=== PATIENT | female | born 1945 | race Caucasian/White ===

== ENCOUNTER 2019-03-02 09:35 | Outpatient (CLI) | payer MEDICARE, MEDICAID ==
[~2019-03-02 09:35] MED LIST: ASPI-1169 PO; BENA40TA67 PO; CARV12.5 PO; FURO20TA4 PO; LEVO50TA PO; SIMV40TA2 PO
== END 2019-03-02 23:59 | disposition home or self-care (01) ==
LOC: CARD 09:35
PROVIDERS: ATTEND Internal Medicine Interventional Cardiology
DX: I65.23 Occlusion and stenosis of bilateral carotid arteries (principal); I70.293 Other atherosclerosis of native arteries of extremities, bilateral legs; I10 Essential (primary) hypertension; J44.9 Chronic obstructive pulmonary disease, unspecified; E03.9 Hypothyroidism, unspecified; F17.200 Nicotine dependence, unspecified, uncomplicated
CPT/HCPCS: 93880-TC

== ENCOUNTER 2021-05-30 17:02 | Inpatient (IN) | payer MEDICARE, OTHER ==
[~2021-05-30] VITALS: Ht 162.6 cm; Wt 63.3 kg
--- NOTE | 2021-05-30 17:20 | NUR ---
PT BIB [facility] FROM HOME,WORSENING SOB X 3 WEEKS & BODY ACHES. PT S/P SURGERY; SURGERY SITE ON ABD. PT DOES NOT RECALL WHAT THE PROCEDURE IS CALLED. PT A/OX3. TOLERATING R/A AT 95%. GISSELLE HEARD ON BILATERAL LUNGS. CONNECTED PT TO POX AND MONITOR.
--- NOTE | 2021-05-30 17:58 | NUR ---
RFA #20G S/L; PATENT AND INTACT. URINE, COVID ANTIGEN, AND COVID PCR SWAB COLLECTED AND GIVEN TO LAB.
[2021-05-30 18:18] LABS: BASOPHILS % (AUTO) 0.5 % (0.0-2.0); EOSINOPHILS % (AUTO) 0.8 % (0.0-6.0); HEMATOCRIT 37 % (33-45); LYMPHOCYTES # (AUTO) 1.3 K/uL (0.8-4.8); LYMPHOCYTES % (AUTO) 32.2 % (20.0-44.0); MEAN CORPUSCULAR HGB CONC 33 g/dl (31.0-36.0); MEAN CORPUSCULAR VOLUME 91 fL (82-100); MONOCYTES # (AUTO) 0.3 K/uL (0.1-1.30); MONOCYTES % (AUTO) 8.4 % (2.0-12.0); NEUTROPHILS # (AUTO) 2.3 K/uL (1.8-8.9); NEUTROPHILS % (AUTO) 58.1 % (43.0-81.0); PLATELET COUNT (AUTO) 328 K/uL (150-450); RED BLOOD CELL COUNT(AUTO) 4.03 MIL/uL (4.0-5.2)
--- NOTE | 2021-05-30 18:22 | NUR ---
SUPERVISOR MECHANIC BOILERMAKING AT PT'S BEDSIDE
[2021-05-30 18:36] LABS: CARBON DIOXIDE 23 mmol/L (21-32); CHLORIDE 100 mmol/L (98-107); CREATININE 1.7 mg/dL (0.6-1.3); GLUCOSE 107 mg/dL (74-106); POTASSIUM 3.9 mmol/L (3.5-5.1); SODIUM SERUM 134 mmol/L (136-145); UREA NITROGEN, BLOOD 30 mg/dL (7-18)
[2021-05-30] MEDS ORDERED: SIMV-49 PO (18:37)
[2021-05-30] MEDS ORDERED: DONE5TAB34 PO (18:37)
[2021-05-30] MEDS ORDERED: ATOR40TA PO (18:37)
[2021-05-30] MEDS ORDERED: AMLO-213 PO (18:37)
[2021-05-30] MEDS ORDERED: DEXL60CA3 PO (18:37)
[2021-05-30] MEDS ORDERED: LEVO88TA71 PO (18:37)
[2021-05-30] MEDS ORDERED: SITA50TA PO (18:37)
[2021-05-30] MEDS ORDERED: APIX5TAB PO (18:37)
[2021-05-30 18:40] LABS: COLOR,URINE BROWN (YELLOW)
[2021-05-30 18:50] LABS: ALANINE AMINOTRANSFERASE 16 U/L (12-78); ALBUMIN 3.4 g/dL (3.4-5.0); ALKALINE PHOSPHATASE 86 U/L (46-116); ASPARTATE AMINOTRANSFERASE 20 U/L (15-37); BILIRUBIN,TOTAL 0.6 mg/dL (0.2-1.0); TOTAL PROTEIN, SERUM 8.1 g/dL (6.4-8.2)
[2021-05-30] MEDS ORDERED: IOHEXOL-350 100 ML VIAL IV ONE (18:55)
[2021-05-30 18:57] LABS: RBC,URINE TOO NUMEROUS TO COUN /HPF (0-2)
[2021-05-30 18:58] LABS: BACTERIA,URINE 1+ /HPF (None Seen); SQUAMOUS EPITHELIAL CELL,UR 0-2 /HPF (None Seen)
[2021-05-30 18:58] LABS: CREATINE KINASE, TOTAL 30 U/L (26-192); FERRITIN 483 ng/mL (8-388)
[2021-05-30 19:02] LABS: C-REACTIVE PROTEIN 1.3 mg/dL (0.0-0.9); D-DIMER 10.2 mg/L(FEU (0.17-0.50)
--- NOTE | 2021-05-30 19:14 | NUR ---
PT AT CT. INSERTED LAC #20G S/L PATENT AND INTACT
--- NOTE | 2021-05-30 19:23 | NUR ---
CALLED [facility], PAGED DR BRUCE
[2021-05-30] MEDS ORDERED: MAGNESIUM HYDROXIDE 30 ML UDC PO PRN (20:00)
[2021-05-30] MEDS ORDERED: Z GUARD REMEDY 4 OZ OINT TP PRN (20:00)
[2021-05-30] MEDS: CEFTRIAXONE 1 G in IV D5W 50 ML IV SCH (20:00)
[2021-05-30] MEDS ORDERED: LABETALOL HCL IV 100MG VIAL IV PRN (20:00)
[2021-05-30] MEDS ORDERED: ZOLPIDEM TARTRATE 5 MG TABLET PO PRN (20:00)
[2021-05-30] MEDS ORDERED: MAG HYDROX/AL HYDROX/SIMETH 30 ML UDC PO PRN (20:00)
[2021-05-30] MEDS ORDERED: MORPHINE SULFATE INJ 2 MG/ML DISP.SYRIN IV PRN (20:00)
[2021-05-30] MEDS ORDERED: ACETAMINOPHEN 325 MG TABLET PO PRN (20:00)
[2021-05-30] MEDS ORDERED: HEPARIN SODIUM, PORCINE 5000 UNITS/1 ML VIAL SQ SCH (21:00)
[2021-05-30] MEDS ORDERED: SIMVASTATIN 20 MG TABLET ONE (21:34)
[2021-05-30] MEDS ORDERED: CEFTRIAXONE 1GM BAG (ER ONLY) 50 ML IV ONE (21:34)
[2021-05-30] MEDS ORDERED: AZITHROMYCIN 500 MG VIAL ONE (21:34)
[2021-05-30] MEDS ORDERED: SIMVASTATIN 40 MG TABLET PO SCH (22:00)
[2021-05-30] MEDS: AZITHROMYCIN 500 MG in IV D5W 250 ML IV SCH (22:37)
[2021-05-31 05:46] LABS: BASOPHILS % (AUTO) 0.5 % (0.0-2.0); EOSINOPHILS % (AUTO) 0.4 % (0.0-6.0); HEMATOCRIT 35 % (33-45); HEMOGLOBIN 11.4 g/dL (11.5-14.8); LYMPHOCYTES # (AUTO) 1.4 K/uL (0.8-4.8); LYMPHOCYTES % (AUTO) 30.2 % (20.0-44.0); MEAN CORPUSCULAR HGB CONC 33 g/dl (31.0-36.0); MEAN CORPUSCULAR VOLUME 91 fL (82-100); MONOCYTES # (AUTO) 0.4 K/uL (0.1-1.30); MONOCYTES % (AUTO) 8.9 % (2.0-12.0); NEUTROPHILS # (AUTO) 2.9 K/uL (1.8-8.9); PLATELET COUNT (AUTO) 322 K/uL (150-450); RED BLOOD CELL COUNT(AUTO) 3.81 MIL/uL (4.0-5.2); WHITE BLOOD COUNT (AUTO) 4.8 K/uL (4.3-11.0)
[2021-05-31 06:59] LABS: CALCIUM, SERUM 8.4 mg/dL (8.5-10.1); CARBON DIOXIDE 24 mmol/L (21-32); CHLORIDE 100 mmol/L (98-107); CREATININE 1.8 mg/dL (0.6-1.3); GLUCOSE 110 mg/dL (74-106); MAGNESIUM 2.2 mg/dL (1.8-2.4); PHOSPHORUS 3.2 mg/dL (2.5-4.9); POTASSIUM 4.2 mmol/L (3.5-5.1); SODIUM SERUM 134 mmol/L (136-145); UREA NITROGEN, BLOOD 32 mg/dL (7-18)
[2021-05-31] MEDS ORDERED: PANTOPRAZOLE 40 MG TABLET.DR PO SCH (07:30)
[2021-05-31] MEDS: PANTOPRAZOLE 40 MG TABLET.DR PO SCH (07:30)
--- NOTE | 2021-05-31 07:40 | NUR ---
ASSESSED PT ON BED ASLEEP, EASILY AROUSABLE, NOT IN RESPIRATORY DISTRESS, ON O2 AT 3 LPM VIA NC, V/S STABLE, KEPT RESTED AND COMFORTABLE. WILL CONTINUE TO MONITOR.
[2021-05-31] MEDS ORDERED: PANTOPRAZOLE 40 MG TABLET.DR PO ONE (08:03)
[2021-05-31] MEDS ORDERED: ASPIRIN 81 MG TAB.CHEW ONE (08:41)
[2021-05-31] MEDS ORDERED: HEPARIN SODIUM, PORCINE 5000 UNITS/1 ML VIAL ONE (08:41)
[2021-05-31] MEDS ORDERED: ASPIRIN EC 325 MG TABLET.DR PO SCH (09:00)
[2021-05-31] MEDS: ASPIRIN EC 81 MG TABLET.DR PO SCH (09:01)
[2021-05-31] MEDS: HEPARIN SODIUM, PORCINE 5000 UNITS/1 ML VIAL SQ SCH ×2 (09:02→21:27)
[2021-05-31] MEDS ORDERED: SITAGLIPTIN PHOSPHATE 50 MG TABLET PO SCH (10:30)
[2021-05-31] MEDS ORDERED: CARVEDILOL 6.25 MG TABLET ONE (11:48)
[2021-05-31] MEDS ORDERED: APIXABAN 5 MG TABLET ONE ×2 (11:48→17:27)
[2021-05-31] MEDS ORDERED: AMLODIPINE BESYLATE 10 MG TABLET ONE (11:49)
[2021-05-31] MEDS ORDERED: DONEPEZIL 5 MG TABLET ONE (11:49)
[2021-05-31] MEDS: DONEPEZIL 5 MG TABLET PO SCH (11:52)
[2021-05-31] MEDS: APIXABAN 5 MG TABLET PO SCH ×2 (11:52→17:31)
[2021-05-31] MEDS: CARVEDILOL 12.5 MG TABLET PO SCH (12:01)
[2021-05-31] MEDS: AMLODIPINE BESYLATE 10 MG TABLET PO SCH (12:01)
[2021-05-31] MEDS: LINAGLIPTIN 5 MG TABLET PO SCH (13:24)
--- NOTE | 2021-05-31 13:46 | NUR ---
PT A/OX4. TOLERATING O2 3LPM VIA N/C. OFFERED PT LUNCH AND EATING FOOD; TOLERATING WELL. NO ACUTE STRESS NOTED AT THIS TIME. ALL NEEDS MET
--- NOTE | 2021-05-31 16:16 | NUR ---
GOT BED 203
--- NOTE | 2021-05-31 16:31 | NUR ---
CALLED [facility] X3 WILL NO ENTRY LEVEL DRAFTER. WILL TRY TO CALL AGAIN LATER
--- NOTE | 2021-05-31 17:16 | NUR ---
REPORT GIVEN TO RENY ADAMS RN FOR CHAYO
[2021-05-31] MEDS ORDERED: DEXAMETHASONE SOD PHOSPHATE 10 MG/ML VIAL ONE (17:27)
[2021-05-31] MEDS: DEXAMETHASONE SOD PHOSPHATE 4 MG/ML VIAL IV SCH (17:30)
[2021-05-31 17:50] VITALS: BP 122/67
--- NOTE | 2021-05-31 17:50 | NUR ---
EMBROIDERY ASSISTANTELECTION JUDGE NOTES RECEIVED PATIENT FROM ER ENDORSED BY ER NURSE CARLOS. PATIENT IS AWAKE AND A/O X3-4. ON O2 AT 2LPM VIA NASAL CANNULA TOLERATING WELL. WITH NO COMPLAINTS OF PAIN OR DISCOMFORT AT THIS TIME. ON TELE MONITOR CURRENTLY READING SINUS RHYTHM AT 72BPM. WITH IV ACCESS AT LEFT AC G20 AND RIGHT WRIST G20 SALINE LOCKED, PATENT AND INTACT. SAFETY MEASURES IN PLACED. CALL LIGHT WITHIN REACH. BED ON LOWEST LOCKED POSITION, SIDE RAILS UP X2. WILL CONTINUE TO MONITOR.
--- NOTE | 2021-05-31 18:07 | NUR ---
PT TRANSFERRED TO [facility] 203 VIA ACLS PROTOCOL. ALL BELONGINGS WITH PT. VSS. NOTIFIED ITALO (DAUGHTER)
[2021-05-31 18:50] VITALS: BP 122/67
[2021-05-31] MEDS: CEFTRIAXONE 1 G in IV D5W 50 ML IV SCH (19:24)
--- NOTE | 2021-05-31 19:30 | NUR ---
PHILOSOPHY INSTRUCTOR CLOSING NOTES PATIENT AWAKE ON BED AND A/O X3-4. ON O2 AT 2LPM VIA NASAL CANNULA TOLERATING WELL. WITH NO COMPLAINTS OF PAIN OR DISCOMFORT AT THIS TIME. ON TELE MONITOR CURRENTLY READING SINUS BRADYCARDIA AT 56BPMBPM. WITH IV ACCESS AT LEFT AC G20 AND RIGHT WRIST G20 SALINE LOCKED, PATENT AND INTACT. SAFETY MEASURES IN PLACED. CALL LIGHT WITHIN REACH. BED ON LOWEST LOCKED POSITION, SIDE RAILS UP X2. WILL ENDORSE TO NEXT SHIFT FOR CHAYO.
--- NOTE | 2021-05-31 19:40 | NUR ---
RN opening notes Received Pt from morning. Pt is laying in bed watching TV comfortably. Pt is alert and orientedX2-3. Pt speak Italian and able to make needs known. IV site at R wrist# 20 is clean, intact and SL. IV site at LAC# 20 is clean, intact, flushes well and SL. Tele monitor showed S.rhtym/S.claire HR at 57. Safety precautions is maintained. Bed at low position, brakes locked, side rail upX3, hob elevated and call light is within reach. Will continue to monitor. Addendum: 05/31/21 at 2038 by KARL DRUMMOND RN respiration on 2 L NC. NO SOB. No S/S of distress noted.
[2021-05-31 20:00] VITALS: BP 158/92
[2021-05-31] MEDS: AZITHROMYCIN 500 MG in IV D5W 250 ML IV SCH (20:04)
[2021-05-31] MEDS: ATORVASTATIN 40 MG TABLET PO SCH (21:25)
[2021-05-31 22:00] VITALS: BP 138/84
[2021-06-01] VITALS: BP 138/69
[2021-06-01 04:00] VITALS: BP 156/92
--- NOTE | 2021-06-01 06:40 | NUR ---
RN closing notes Pt is resting in bed comfortably. Pt is alert and orientedX2-3. Respiration on 2 L NC. No SOB. No S/s of distress noted. IV site at R wrist# 20 is clean, intact and SL. IV site at LAC# 20 is clean, intact, flushes well and SL. Tele monitor showed S.claire HR at 53. Routine meds were given as ordered. Kept Pt clean, dry and comfortable. Kept Pt clean, dry and comfortable. Safety precautions is maintained. Bed at low position, brakes locked, side rail upX3, hob elevated and call light is within reach. Will endorse to am nurse for CHAYO.
--- NOTE | 2021-06-01 07:06 | NUR ---
REVENUE ENFORCEMENT AGENT OPENING NOTES RECEIVED PATIENT IN BED, AWAKE AND A/O X3-4. ON O2 AT 2LPM VIA NASAL CANNULA TOLERATING WELL, NO S/SX OF ACUTE DISTRESS NOTED. WITH NO COMPLAINTS OF PAIN OR DISCOMFORT AT THIS TIME. ON TELE MONITOR CURRENTLY READING SINUS RHYTHM AT 70'S. WITH IV ACCESS AT LEFT AC G20 AND RIGHT WRIST G20 SALINE LOCKED, PATENT, FLUSHES WELL AND INTACT. SAFETY MEASURES IN PLACED. CALL LIGHT WITHIN REACH. BED ON LOWEST LOCKED POSITION, SIDE RAILS UP X2. WILL CONTINUE TO MONITOR ACCORDINGLY.
[2021-06-01 07:09] LABS: BASOPHILS % (AUTO) 0.2 % (0.0-2.0); HEMATOCRIT 34 % (33-45); HEMOGLOBIN 11.2 g/dL (11.5-14.8); LYMPHOCYTES # (AUTO) 0.8 K/uL (0.8-4.8); LYMPHOCYTES % (AUTO) 24.8 % (20.0-44.0); MEAN CORPUSCULAR HGB CONC 33 g/dl (31.0-36.0); MEAN CORPUSCULAR VOLUME 91 fL (82-100); MONOCYTES # (AUTO) 0.1 K/uL (0.1-1.30); MONOCYTES % (AUTO) 2.7 % (2.0-12.0); NEUTROPHILS # (AUTO) 2.3 K/uL (1.8-8.9); NEUTROPHILS % (AUTO) 72.3 % (43.0-81.0); PLATELET COUNT (AUTO) 283 K/uL (150-450); RED BLOOD CELL COUNT(AUTO) 3.76 MIL/uL (4.0-5.2); WHITE BLOOD COUNT (AUTO) 3.2 K/uL (4.3-11.0)
[2021-06-01 07:32] LABS: ALANINE AMINOTRANSFERASE 11 U/L (12-78); ALBUMIN 3.1 g/dL (3.4-5.0); ALKALINE PHOSPHATASE 71 U/L (46-116); ASPARTATE AMINOTRANSFERASE 13 U/L (15-37); BILIRUBIN,TOTAL 0.4 mg/dL (0.2-1.0); CALCIUM, SERUM 8.5 mg/dL (8.5-10.1); CARBON DIOXIDE 24 mmol/L (21-32); CHLORIDE 102 mmol/L (98-107); CREATININE 1.6 mg/dL (0.6-1.3); GLUCOSE 150 mg/dL (74-106); MAGNESIUM 2.3 mg/dL (1.8-2.4); POTASSIUM 4.6 mmol/L (3.5-5.1); SODIUM SERUM 136 mmol/L (136-145); TOTAL PROTEIN, SERUM 7.5 g/dL (6.4-8.2); UREA NITROGEN, BLOOD 26 mg/dL (7-18)
[2021-06-01] MEDS: PANTOPRAZOLE 40 MG TABLET.DR PO SCH (07:37)
[2021-06-01 08:00] VITALS: BP 157/87
[2021-06-01] MEDS: LEVOTHYROXINE SODIUM 88 MCG TABLET PO SCH (08:33)
[2021-06-01] MEDS: ASPIRIN EC 81 MG TABLET.DR PO SCH (08:33)
[2021-06-01] MEDS: LINAGLIPTIN 5 MG TABLET PO SCH (08:33)
[2021-06-01] MEDS: DONEPEZIL 5 MG TABLET PO SCH (08:33)
[2021-06-01] MEDS: DEXAMETHASONE SOD PHOSPHATE 4 MG/ML VIAL IV SCH (08:33)
[2021-06-01] MEDS: CARVEDILOL 12.5 MG TABLET PO SCH (08:34)
[2021-06-01] MEDS: AMLODIPINE BESYLATE 10 MG TABLET PO SCH (08:34)
[2021-06-01] MEDS: APIXABAN 5 MG TABLET PO SCH ×2 (08:35→16:20)
[2021-06-01] MEDS: HEPARIN SODIUM, PORCINE 5000 UNITS/1 ML VIAL SQ SCH ×2 (08:35→21:51)
--- NOTE | 2021-06-01 15:00 | NUR ---
RN NOTES URINE SPECIMEN COLLECTED. INFORMED LAB SPOKE TO ANURAG.
--- NOTE | 2021-06-01 18:23 | NUR ---
CHIEF CLINICAL OFFICER CLOSING NOTES PATIENT IN BED, AWAKE AND A/O X3-4. ON O2 AT 2LPM VIA NASAL CANNULA TOLERATING WELL, NO S/SX OF ACUTE DISTRESS NOTED. WITH NO COMPLAINTS OF PAIN OR DISCOMFORT AT THIS TIME. ON TELE MONITOR CURRENTLY READING SINUS RHYTHM AT 60'S. WITH IV ACCESS AT LEFT AC G20 AND RIGHT WRIST G20 SALINE LOCKED, PATENT, FLUSHES WELL AND INTACT. SAFETY MEASURES IN PLACED. CALL LIGHT WITHIN REACH. BED ON LOWEST LOCKED POSITION, SIDE RAILS UP X2. ALL NEEDS ATTENDED AND MET. DUE MEDS GIVEN ORDERED. WILL ENDORSED TO ONCOMING SHIFT FOR CHAYO.
--- NOTE | 2021-06-01 19:15 | NUR ---
SYSTEMS SOFTWARE DESIGNER OPENING NOTES RECEIVED PATIENT LAYING AWAKE IN BED. A/O X 3-4. PATIENT WITH REGULAR AND UNLABORED BREATHING ON 2 LPM VIA NASAL CANULA, TOLERATED WELL. NO SIGNS AND SYMPTOMS OF DISTRESS NOTED AT THIS TIME. NO COMPLAINS OF PAIN OR DISCOMFORT AT THIS TIME. PATIENT ON TELE MONITOR READING SR @ 65 BPM. IV ACCESS R WRIST G # 20 AND LAC G #20 SL. IV ACCESS PATENT AND INTACT. SAFETY PRECAUTIONS ENFORCED WITH BED LOCKED AND AT LOWEST POSITION. CALL LIGHT WITHIN REACH AT ALL TIMES. WILL CONTINUE TO MONITOR PATIENT.
[2021-06-01] MEDS: AZITHROMYCIN 500 MG in IV D5W 250 ML IV SCH (19:46)
[2021-06-01 20:00] VITALS: BP 127/67
[2021-06-01] MEDS: CEFTRIAXONE 1 G in IV D5W 50 ML IV SCH (20:42)
[2021-06-01] MEDS: ATORVASTATIN 40 MG TABLET PO SCH (21:48)
[2021-06-02] VITALS: BP 152/89
[2021-06-02] MEDS: HYDROCODONE/APAP 5/325MG TABLET PO PRN (00:13)
--- NOTE | 2021-06-02 00:14 | NUR ---
DIETITIAN TEACHER NOTES PATIENT COMPLAINED OF PAIN. ADMINISTERED NORCO PRN ORDERED BY THE HOSPITALIST. WILL CONTINUE TO MONITOR PATIENT.
[2021-06-02 03:08] LABS: BILIRUBIN,URINE NEGATIVE (NEGATIVE); COLOR,URINE YELLOW (YELLOW); LEUKOCYTE ESTERASE ,URINE NEGATIVE (NEGATIVE); NITRITE, URINE NEGATIVE (NEGATIVE); PROTEIN,URINE TRACE mg/dl (NEGATIVE); UGLUCOSE NEGATIVE (NEGATIVE); UROBILINOGEN,URINE 0.2 EU/dL (0.2)
[2021-06-02 03:34] LABS: CREATININE, URINE 181.3 MG/DL (30.0-125.0); URINE TOTAL PROTEIN 69.4 mg/dL (0-11.9)
[2021-06-02 04:00] VITALS: BP 156/91
[2021-06-02 06:20] LABS: RBC,URINE 51-80 /HPF (0-2)
[2021-06-02 06:21] LABS: BACTERIA,URINE Many /HPF (None Seen); SQUAMOUS EPITHELIAL CELL,UR Few /HPF (None Seen); URIC ACID CRYSTALS,URINE Many /HPF (None Seen); YEAST,URINE Many /HPF (None Seen)
[2021-06-02 06:22] LABS: URINE AMORPHOUS URATE Moderate /HPF (None Seen)
[2021-06-02 06:49] LABS: CREATINE KINASE, TOTAL 16 U/L (26-192)
[2021-06-02 06:56] LABS: ALANINE AMINOTRANSFERASE 14 U/L (12-78); ALBUMIN 3.1 g/dL (3.4-5.0); ALKALINE PHOSPHATASE 70 U/L (46-116); ASPARTATE AMINOTRANSFERASE 13 U/L (15-37); BILIRUBIN,TOTAL 0.3 mg/dL (0.2-1.0); CALCIUM, SERUM 8.7 mg/dL (8.5-10.1); CARBON DIOXIDE 25 mmol/L (21-32); CHLORIDE 100 mmol/L (98-107); CREATININE 1.7 mg/dL (0.6-1.3); GLUCOSE 176 mg/dL (74-106); MAGNESIUM 2.3 mg/dL (1.8-2.4); PHOSPHORUS 2.7 mg/dL (2.5-4.9); SODIUM SERUM 134 mmol/L (136-145); TOTAL PROTEIN, SERUM 7.4 g/dL (6.4-8.2); UREA NITROGEN, BLOOD 31 mg/dL (7-18)
--- NOTE | 2021-06-02 06:58 | NUR ---
CARD CUTTER CLOSING NOTES PATIENT STILL LAYING AWAKE IN BED. A/O X 3-4. PATIENT WITH REGULAR AND UNLABORED BREATHING ON 2 LPM VIA NASAL CANULA, TOLERATED WELL. NO SIGNS AND SYMPTOMS OF DISTRESS NOTED AT THIS TIME. NO COMPLAINS OF PAIN OR DISCOMFORT AT THIS TIME. PATIENT ON TELE MONITOR READING SR @ 60 BPM. IV ACCESS R WRIST G # 20 AND LAC G #20 SL. IV ACCESS PATENT AND INTACT. SAFETY PRECAUTIONS ENFORCED WITH BED LOCKED AND AT LOWEST POSITION. CALL LIGHT WITHIN REACH AT ALL TIMES. WILL ENDORSE CONTINUITY OF CARE TO DAY SHIFT NURSE.
[2021-06-02 07:23] LABS: BASOPHILS % (AUTO) 0.1 % (0.0-2.0); HEMATOCRIT 33 % (33-45); HEMOGLOBIN 10.9 g/dL (11.5-14.8); LYMPHOCYTES # (AUTO) 0.8 K/uL (0.8-4.8); MEAN CORPUSCULAR HGB CONC 33 g/dl (31.0-36.0); MEAN CORPUSCULAR VOLUME 90 fL (82-100); MONOCYTES # (AUTO) 0.2 K/uL (0.1-1.30); MONOCYTES % (AUTO) 4.7 % (2.0-12.0); NEUTROPHILS # (AUTO) 3.3 K/uL (1.8-8.9); NEUTROPHILS % (AUTO) 77.2 % (43.0-81.0); PLATELET COUNT (AUTO) 312 K/uL (150-450); RED BLOOD CELL COUNT(AUTO) 3.64 MIL/uL (4.0-5.2); WHITE BLOOD COUNT (AUTO) 4.3 K/uL (4.3-11.0)
--- NOTE | 2021-06-02 07:36 | NUR ---
WEB OFFSET PRESS FEEDER OPENING NOTES RECEIVED PATIENT IN BED, ASLEEP. PATIENT ON OXYGEN THERAPY AT 2 LPM VIA NASAL CANULA; BREATHING EVEN AND UNLABORED, NO SOB NOTED. TELE MONITOR WITH A CURRENT READING OF SR. IV ACCESS AT LAC G # 20 SL PRESENT AND INTACT. NO S/S OF PAIN. SAFETY PRECAUTIONS IN PLACE; BED IN LOW POSITION AND LOCKED, RAILS UP X2, ARMANDO LIGHT WITHIN REACH. WILL CONTINUE TO MONITOR PATIENT.
[2021-06-02 08:36] VITALS: BP 170/102
[2021-06-02] MEDS: LINAGLIPTIN 5 MG TABLET PO SCH (08:48)
[2021-06-02] MEDS: LEVOTHYROXINE SODIUM 88 MCG TABLET PO SCH (08:48)
[2021-06-02] MEDS: DONEPEZIL 5 MG TABLET PO SCH (08:48)
[2021-06-02] MEDS: PANTOPRAZOLE 40 MG TABLET.DR PO SCH (08:48)
[2021-06-02] MEDS: CARVEDILOL 12.5 MG TABLET PO SCH (08:49)
[2021-06-02] MEDS: AMLODIPINE BESYLATE 10 MG TABLET PO SCH (08:49)
[2021-06-02] MEDS: ASPIRIN EC 81 MG TABLET.DR PO SCH (08:50)
[2021-06-02] MEDS: APIXABAN 5 MG TABLET PO SCH ×2 (08:53→16:30)
[2021-06-02] MEDS: HEPARIN SODIUM, PORCINE 5000 UNITS/1 ML VIAL SQ SCH ×2 (08:54→20:44)
[2021-06-02] MEDS: DEXAMETHASONE SOD PHOSPHATE 4 MG/ML VIAL IV SCH (08:57)
[2021-06-02] MEDS: hydrALAZINE HCL 50 MG TABLET PO SCH ×3 (10:07→17:00)
[2021-06-02] MEDS: NITROGLYCERIN 30 GM TUBE TP SCH ×2 (11:36→20:47)
--- NOTE | 2021-06-02 11:40 | NUR ---
CREDIT CHARGE AUTHORIZER NOTES PATIENT COMPLAINING OF NAUSEA AND DIZZINESS. VITAL SIGNS WNL MD NOTIFIED PRN ZOFRAN ADMINISTERED. WILL REASSESS.
[2021-06-02] MEDS: ONDANSETRON HCL/PF 4 MG/2 ML VIAL IVP PRN ×2 (11:45→20:33)
--- NOTE | 2021-06-02 12:12 | NUR ---
SS Consult: SS consult for stroke. Pt. Is a 75-year-old female. Pt. speaks Panamanian. Pt.s nurse helped translate. Pt. demonstrates adequate insight to the reason for hospitalization. Pt. was oriented x3, alert, and cooperative. During interview, pt. was capable of following directions, made appropriate eye-contact, and appeared well-groomed. Pt.s speech was at a normal rate. Pt.s mood was elevated. CARON explored pt.s hx of mental health and substance abuse. Pt. reported no hx of mental health, substance abuse, suicidal or homicidal ideation. Pt. denies auditory hallucinations, visual hallucinations, paranoia, or delusions. CARON explored pt.s living situation. Per pt., she lives alone [[id number] [place] [address]]. Per pt., she reports having adequate support from her daughter. CARON explored pt.s DMEs. Pt. uses a walker. Plan: CARON provided available resources and pt. accepted. CARON screened pt. with PHQ-9 and she scored a 5 [Mild]. CARON notified nurse to put in a psychiatrist referral. Resources Provided: Stroke Empowerment
[2021-06-02 12:36] VITALS: BP 150/89
[2021-06-02] MEDS: FLUTICASONE PROPIONATE 16 GM BOTTLE NS SCH ×2 (14:44→16:28)
[2021-06-02] MEDS ORDERED: ALBUTEROL SULFATE 8 GM HFA.AER.AD IH PRN (15:00)
[2021-06-02 16:00] VITALS: BP 125/70
[2021-06-02 16:34] LABS: EOSINOPHIL,URINE None Seen
--- NOTE | 2021-06-02 18:05 | NUR ---
VALANCE CUTTER NOTES 1700 HYDRALAZINE NON-ADMINISTERED. HR 56
--- NOTE | 2021-06-02 18:34 | NUR ---
MOUNTER HAND CLOSING NOTES PATIENT REMAINS IN BED, AWAKE, A/O X2. PATIENT ON OXYGEN THERAPY AT 2 LPM VIA NASAL CANULA; BREATHING EVEN AND UNLABORED, NO SOB NOTED. TELE MONITOR WITH A CURRENT READING OF SR. IV ACCESS AT LAC G # 20 SL PRESENT AND INTACT. COMPLAINS OF MILD ABDOMINAL PAIN DUE TO CONSTIPATION. ALL NEEDS ATTENDED DURING THE DAY. SAFETY PRECAUTIONS IN PLACE; BED IN LOW POSITION AND LOCKED, RAILS UP X2, ARMANDO LIGHT WITHIN REACH. WILL ENDORSE T JEWELRY ESTIMATOR NURSE FOR CHAYO.
[2021-06-02] MEDS: CEFTRIAXONE 1 G in IV D5W 50 ML IV SCH (19:11)
--- NOTE | 2021-06-02 19:30 | NUR ---
RN opening notes Received Pt from morning. Pt is resting in bed comfortably. Pt is alert and orientedX3. Respiration is normal in 2 L NC. No SOB. no S/S of distress noted. IV site at R wrist# 20 is clean, intact and SL. IV site at LAC# 20 is clean, intact, flushes well and SL. Tele monitor showed S. rhythm HR at 60. Safety precautions is maintained. Bed at low position, brakes locked, side rail upX3, hob elevated and call light is within reach. Will continue to monitor.
[2021-06-02] MEDS: AZITHROMYCIN 500 MG in IV D5W 250 ML IV SCH (19:36)
[2021-06-02 20:00] VITALS: BP 123/65
--- NOTE | 2021-06-02 20:33 | NUR ---
RN notes Pt is complaining of nausea and no vomiting. Pt requesting meds. administered zofran 4 mg/iv push/prn as ordered. Will continue to monitor.
[2021-06-02] MEDS: ATORVASTATIN 40 MG TABLET PO SCH (21:09)
[2021-06-03] VITALS: BP 129/74
[2021-06-03 04:00] VITALS: BP 114/62
[2021-06-03 06:42] LABS: BASOPHILS % (AUTO) 0.1 % (0.0-2.0); EOSINOPHILS % (AUTO) 0.1 % (0.0-6.0); HEMATOCRIT 33 % (33-45); HEMOGLOBIN 10.9 g/dL (11.5-14.8); LYMPHOCYTES # (AUTO) 0.8 K/uL (0.8-4.8); LYMPHOCYTES % (AUTO) 16.3 % (20.0-44.0); MEAN CORPUSCULAR HGB CONC 33 g/dl (31.0-36.0); MEAN CORPUSCULAR VOLUME 91 fL (82-100); MONOCYTES # (AUTO) 0.3 K/uL (0.1-1.30); MONOCYTES % (AUTO) 7.4 % (2.0-12.0); NEUTROPHILS # (AUTO) 3.6 K/uL (1.8-8.9); NEUTROPHILS % (AUTO) 76.1 % (43.0-81.0); PLATELET COUNT (AUTO) 309 K/uL (150-450); RED BLOOD CELL COUNT(AUTO) 3.66 MIL/uL (4.0-5.2); WHITE BLOOD COUNT (AUTO) 4.7 K/uL (4.3-11.0)
--- NOTE | 2021-06-03 06:42 | NUR ---
RN closing notes Pt is resting in bed comfortably. Pt is alert and orientedX3. Respiration on 2 L NC. No SOB. No S/s of distress noted. IV site at R wrist# 20 is clean, intact and SL. IV site at LAC# 20 is clean, intact, flushes well and SL. Tele monitor showed S.claire HR at 52. Routine meds were given as ordered. Kept Pt clean, dry and comfortable. all needs met and attended. Safety precautions is maintained. Bed at low position, brakes locked, side rail upX3, hob elevated and call light is within reach. Will endorse to am nurse for CHAYO.
[2021-06-03 07:14] LABS: CALCIUM, SERUM 8.3 mg/dL (8.5-10.1); CARBON DIOXIDE 26 mmol/L (21-32); CHLORIDE 99 mmol/L (98-107); CREATININE 1.8 mg/dL (0.6-1.3); GLUCOSE 178 mg/dL (74-106); POTASSIUM 4.6 mmol/L (3.5-5.1); SODIUM SERUM 134 mmol/L (136-145); UREA NITROGEN, BLOOD 36 mg/dL (7-18)
--- NOTE | 2021-06-03 07:18 | NUR ---
CRIMINAL ANALYST OPENING NOTES RECEIVED PATIENT IN BED, ASLEEP. PATIENT EASILY AROUSABLE, ALERT/ ORIENTED X2-3, MOSTLY ITALIAN SPEAKING. PATIENT ON OXYGEN THERAPY AT 2 LPM VIA NASAL CANULA; BREATHING EVEN AND UNLABORED, NO SOB NOTED. TELE MONITOR WITH A CURRENT READING OF SR, WITH OCCASIONAL SINUS DELVIN ON 50'S. WITH IV ACCESS AT RIGHT WRIST G 20 AND LEFT AC G 20, ON SALINE LOCK, PATENT AND INTACT. NO COMPLAINTS OF PAIN. SAFETY PRECAUTIONS IN PLACE; BED IN LOW POSITION AND LOCKED, RAILS UP X2, ARMANDO LIGHT WITHIN REACH. WILL CONTINUE TO MONITOR PATIENT.
[2021-06-03 08:00] VITALS: BP 141/76
[2021-06-03] MEDS: PANTOPRAZOLE 40 MG TABLET.DR PO SCH (08:23)
[2021-06-03] MEDS: CARVEDILOL 12.5 MG TABLET PO SCH (09:00)
[2021-06-03] MEDS: DEXAMETHASONE SOD PHOSPHATE 10 MG/ML VIAL IV SCH (09:12)
[2021-06-03] MEDS: hydrALAZINE HCL 50 MG TABLET PO SCH ×3 (09:13→16:52)
[2021-06-03] MEDS: ASPIRIN EC 81 MG TABLET.DR PO SCH (09:14)
[2021-06-03] MEDS: DONEPEZIL 5 MG TABLET PO SCH (09:14)
[2021-06-03] MEDS: LINAGLIPTIN 5 MG TABLET PO SCH (09:15)
[2021-06-03] MEDS: AMLODIPINE BESYLATE 10 MG TABLET PO SCH (09:15)
[2021-06-03] MEDS: LEVOTHYROXINE SODIUM 88 MCG TABLET PO SCH (09:15)
[2021-06-03] MEDS: FLUTICASONE PROPIONATE 16 GM BOTTLE NS SCH ×2 (09:16→16:52)
[2021-06-03] MEDS: NITROGLYCERIN 30 GM TUBE TP SCH ×2 (09:17→20:47)
--- NOTE | 2021-06-03 09:30 | NUR ---
SKEIN STRAIGHTENER NOTE COREG NOT GIVEN, HR RANGES FROM 54-58 BPM
--- NOTE | 2021-06-03 10:00 | NUR ---
LINE AND FRAME POLER NOTE PATIENT ON ASA, HEPARIN AND ELIQUIS, VERIFIED WITH DR. TRINH. WITH ORDER TO D/C HEPARIN, READ BACK AND VERIFIED. ORDERS MADE AND CARRIED OUT.
[2021-06-03] MEDS: APIXABAN 5 MG TABLET PO SCH ×2 (11:13→16:55)
[2021-06-03 12:00] VITALS: BP 122/72
[2021-06-03 12:06] LABS: *SPE A/G RATIO 0.9 (0.7-1.7); *SPE ALPHA-1-GLOBULIN 0.2 g/dL (0.0-0.4); *SPE ALPHA-2-GLOBULIN 0.7 g/dL (0.4-1.0); *SPE M-SPIKE Not Observed g/dL (Not Observed)
--- NOTE | 2021-06-03 14:00 | NUR ---
PIPELINE SUPERINTENDENT NOTE SEEN BY DR. TRINH. WILL CONTINUE TO MONITOR PATIENT.
[2021-06-03 16:00] VITALS: BP 106/61
--- NOTE | 2021-06-03 18:59 | NUR ---
RN opening notes Pt is resting in bed comfortably. Pt is alert and orientedX3. Pt speaks Khmer and able to make needs known. Respiration is normal in 2 L NC. No SOB. no S/S of distress noted. IV site at R wrist# 20 is clean, intact and SL. IV site at LAC# 20 is clean, intact, flushes well and SL. Tele monitor showed S. rhythm HR at 64. Safety precautions is maintained. Bed at low position, brakes locked, side rail upX3, hob elevated and call light is within reach. Will continue to monitor.
--- NOTE | 2021-06-03 19:10 | NUR ---
TOOL MAKER CLOSING NOTES RECEIVED PATIENT IN BED, ASLEEP. PATIENT EASILY AROUSABLE, ALERT/ ORIENTED X2-3, MOSTLY BRITISH SPEAKING. PATIENT ON OXYGEN THERAPY AT 2 LPM VIA NASAL CANULA; BREATHING EVEN AND UNLABORED, NO SOB NOTED. TELE MONITOR WITH A CURRENT READING OF SR, WITH OCCASIONAL SINUS DELVIN ON 50'S. WITH IV ACCESS AT RIGHT WRIST G 20 AND LEFT AC G 20, ON SALINE LOCK, PATENT AND INTACT. NO COMPLAINTS OF PAIN. SAFETY PRECAUTIONS IN PLACE; BED IN LOW POSITION AND LOCKED, RAILS UP X2, ARMANDO LIGHT WITHIN REACH. WILL ENDORSE TO NEXT SHIFT FOR CONTINUITY OF CARE.
[2021-06-03] MEDS: CEFTRIAXONE 1 G in IV D5W 50 ML IV SCH (19:13)
[2021-06-03] MEDS: AZITHROMYCIN 500 MG in IV D5W 250 ML IV SCH (19:42)
[2021-06-03 20:00] VITALS: BP 120/63
[2021-06-03] MEDS: HYDROCODONE/APAP 5/325MG TABLET PO PRN (20:46)
--- NOTE | 2021-06-03 20:53 | NUR ---
RN notes Pt is complaining of pain on L arm and requesting pain meds. Administered norco 5/po/prn as ordered for pain. Safety precautions is maintained. Will continue to monitor.
[2021-06-03] MEDS: ATORVASTATIN 40 MG TABLET PO SCH (21:11)
[2021-06-04] VITALS: BP 122/80
[2021-06-04 04:00] VITALS: BP 132/87
--- NOTE | 2021-06-04 06:34 | NUR ---
RN closing notes Pt is resting in bed comfortably. Pt is alert and orientedX3. Respiration on 2 L NC. No SOB. No S/s of distress noted. IV site at R wrist# 20 is clean, intact and SL. IV site at LAC# 20 is clean, intact, flushes well and SL. Tele monitor showed S.claire HR at 58. Routine meds were given as ordered. Kept Pt clean, dry and comfortable. all needs met and attended. Safety precautions is maintained. Bed at low position, brakes locked, side rail upX3, hob elevated and call light is within reach. Will endorse to am nurse for CHAYO.
--- NOTE | 2021-06-04 07:30 | NUR ---
CUSTOMER SUPPORT SPECIALIST NOTES PT IN BED, ASLEEP, EASY TO AROUSE, NO COMPLAINT OF PAIN OR ANY DISCOMFORT, NO SOB, CALL LIGHT WITHIN REACH, KEPT COMFORTABLE IN BED.
[2021-06-04 08:00] VITALS: BP 147/78
[2021-06-04 08:07] LABS: CARBON DIOXIDE 27 mmol/L (21-32); CHLORIDE 99 mmol/L (98-107); CREATININE 1.8 mg/dL (0.6-1.3); GLUCOSE 215 mg/dL (74-106); POTASSIUM 5.4 mmol/L (3.5-5.1); SODIUM SERUM 132 mmol/L (136-145); UREA NITROGEN, BLOOD 40 mg/dL (7-18)
[2021-06-04] MEDS: FLUTICASONE PROPIONATE 16 GM BOTTLE NS SCH ×2 (08:49→16:35)
[2021-06-04] MEDS: NITROGLYCERIN 30 GM TUBE TP SCH ×2 (08:49→21:00)
[2021-06-04] MEDS: LINAGLIPTIN 5 MG TABLET PO SCH (08:50)
[2021-06-04] MEDS: DEXAMETHASONE SOD PHOSPHATE 10 MG/ML VIAL IV SCH (08:50)
[2021-06-04] MEDS: hydrALAZINE HCL 50 MG TABLET PO SCH ×3 (08:50→16:35)
[2021-06-04] MEDS: AMLODIPINE BESYLATE 10 MG TABLET PO SCH (08:50)
[2021-06-04] MEDS: DONEPEZIL 5 MG TABLET PO SCH (08:50)
[2021-06-04] MEDS: LEVOTHYROXINE SODIUM 88 MCG TABLET PO SCH (08:51)
[2021-06-04] MEDS: PANTOPRAZOLE 40 MG TABLET.DR PO SCH (08:51)
[2021-06-04] MEDS: CARVEDILOL 12.5 MG TABLET PO SCH (08:51)
[2021-06-04] MEDS: ASPIRIN EC 81 MG TABLET.DR PO SCH (08:51)
[2021-06-04] MEDS: APIXABAN 5 MG TABLET PO SCH (08:52)
[2021-06-04] MEDS: HYDROCODONE/APAP 5/325MG TABLET PO PRN ×2 (10:27→20:38)
--- NOTE | 2021-06-04 14:06 | NUR ---
WAREHOUSE UNLOADER NOTES PT SEEN AND EXAMINED BY DR. TRINH, PLAN OF CARE DISCUSSED WITH PT, VERBALIZED UNDERSTANDING, ORDERS NOTED AND CARRIED OUT.
[2021-06-04] MEDS ORDERED: APIXABAN 5 MG TABLET PO SCH (17:00)
--- NOTE | 2021-06-04 17:00 | NUR ---
MEAT CARRIER NOTES PT TRANSFERRED TO RM 304-2 WITH ALL BELONGINGS VIA BED, PER DR. TRINH, PT CAN BE DOWNGRADED TO MED-SURG,REPORT GIVEN TO JASMIN FRAZIER FOR CONTINUITY OF CARE.
[2021-06-04 20:00] VITALS: BP 131/64
[2021-06-04] MEDS: HEPARIN SODIUM, PORCINE 5000 UNITS/1 ML VIAL SQ SCH (20:37)
[2021-06-04] MEDS: clonazePAM 0.5 MG TABLET PO SCH (22:23)
[2021-06-04] MEDS: ATORVASTATIN 40 MG TABLET PO SCH (22:23)
--- NOTE | 2021-06-04 22:24 | NUR ---
RN NOTES Nitro ointment was not given patient heart rate -57
[2021-06-04] MEDS ORDERED: TRAZODONE 50 MG TABLET PO SCH (22:30)
[2021-06-04] MEDS: ONDANSETRON HCL/PF 4 MG/2 ML VIAL IVP PRN (22:37)
--- NOTE | 2021-06-04 22:40 | NUR ---
RN NOTES Complained of feeling nauseous- Zofran 4 mg IV given as ordered
--- NOTE | 2021-06-05 06:41 | NUR ---
RN NOTES Sleeping but arousable, no pain noted, no SOB, morning care rendered, call light within reach, donnailsupx2, pt. needs attended
[2021-06-05 06:58] LABS: CARBON DIOXIDE 27 mmol/L (21-32); CHLORIDE 96 mmol/L (98-107); CREATININE 1.4 mg/dL (0.6-1.3); GLUCOSE 140 mg/dL (74-106); SODIUM SERUM 131 mmol/L (136-145); UREA NITROGEN, BLOOD 41 mg/dL (7-18)
[2021-06-05] MEDS: PANTOPRAZOLE 40 MG TABLET.DR PO SCH (07:36)
--- NOTE | 2021-06-05 07:40 | NUR ---
RN OPENING NOTES RECEIVED PATIENT IN BED, ASLEEP. PATIENT EASILY AWAKEN BY VERBAL AND TACTILE STIMULI, ALERT/ ORIENTED X2-3, MOSTLY CAMEROONIAN SPEAKING. PATIENT ON OXYGEN THERAPY AT 2 LPM VIA NASAL CANULA; BREATHING EVEN AND UNLABORED, NO SOB NOTED. WITH IV ACCESS AT LEFT AC G#20, ON SALINE LOCK, PATENT, FLUSHES WELL AND INTACT. NO COMPLAINTS OF PAIN AT THIS TIME. SAFETY PRECAUTIONS IN PLACE; BED IN LOW POSITION AND LOCKED, RAILS UP X2, ARMANDO LIGHT WITHIN REACH. WILL CONTINUE TO MONITOR ACCORDINGLY.
[2021-06-05 08:00] VITALS: BP 132/60
[2021-06-05] MEDS: FLUTICASONE PROPIONATE 16 GM BOTTLE NS SCH (08:49)
[2021-06-05] MEDS: DONEPEZIL 5 MG TABLET PO SCH (08:49)
[2021-06-05] MEDS: ASPIRIN EC 81 MG TABLET.DR PO SCH (08:49)
[2021-06-05] MEDS: LINAGLIPTIN 5 MG TABLET PO SCH (08:49)
[2021-06-05] MEDS: LEVOTHYROXINE SODIUM 88 MCG TABLET PO SCH (08:49)
[2021-06-05] MEDS: AMLODIPINE BESYLATE 10 MG TABLET PO SCH (08:50)
[2021-06-05] MEDS: CARVEDILOL 12.5 MG TABLET PO SCH (08:50)
[2021-06-05] MEDS: hydrALAZINE HCL 50 MG TABLET PO SCH ×2 (08:50→12:53)
[2021-06-05] MEDS: HEPARIN SODIUM, PORCINE 5000 UNITS/1 ML VIAL SQ SCH (08:51)
[2021-06-05] MEDS: NITROGLYCERIN 30 GM TUBE TP SCH (08:52)
[2021-06-05] MEDS ORDERED: METH4TAB17 PO (09:44)
[2021-06-05] MEDS: clonazePAM 0.5 MG TABLET PO SCH (10:34)
[2021-06-05 12:30] VITALS: BP 110/56
--- NOTE | 2021-06-05 12:30 | NUR ---
RN NOTES PATIENT CLEARED FOR DISCHARGE ON CARDIO STANDPOINT PER DR. SEPULVEDA.
[2021-06-05 12:53] VITALS: BP 110/56
--- NOTE | 2021-06-05 15:00 | NUR ---
STRIP PRESSER NOTES DISCHARGED PATIENT IN STABLE CONDITION. VITAL SIGNS WITHIN NORMAL LIMITS. IV ACCESS REMOVED, COVERED WITH GAUZE, NO BLEEDING NOTED. DISCHARGE INSTRUCTIONS DISCUSSED WITH PATIENT'S GRANDSON PATIENT ONLY UNDERSTANDS A LITTLE BIT GREEK. GRANDSON TRANSLATED INSTRUCTIONS GIVEN INCLUDING FOLLOW UP. BOTH VERBALIZED UNDERSTANDING. BELONGINGS ACCOUNTED AND SIGNED FOR. WHEELED TO LOBBY SAFELY ACCOMPANIED BY W[place]ESKA (GISSELLE). MD AND CHARGE NURSE AWARE OF DISCHARGE.
== END 2021-06-05 15:00 | disposition home health service (06) | DRG 177 ==
LOC: ER 17:13 → TRANSITION 20:23 → TELE2 05-31 16:19 → TELE 06-04 16:55 → MED 06-04 21:19
PROVIDERS: ADMIT Student in an Organized Health Care Education/Training Program; ATTEND Internal Medicine
DX: J15.6 Pneumonia due to other Gram-negative bacteria (principal); J96.01 Acute respiratory failure with hypoxia; N17.0 Acute kidney failure with tubular necrosis; I21.4 Non-ST elevation (NSTEMI) myocardial infarction; J44.0 Chronic obstructive pulmonary disease with (acute) lower respiratory infection; E87.1 Hypo-osmolality and hyponatremia; J44.1 Chronic obstructive pulmonary disease with (acute) exacerbation; F03.90 Unspecified dementia, unspecified severity, without behavioral disturbance, psychotic disturbance, mood disturbance, and anxiety; N18.9 Chronic kidney disease, unspecified; I13.10 Hypertensive heart and chronic kidney disease without heart failure, with stage 1 through stage 4 chronic kidney disease, or unspecified chronic kidney disease; Z20.822 Contact with and (suspected) exposure to COVID-19; Z86.73 Personal history of transient ischemic attack (TIA), and cerebral infarction without residual deficits; Z87.19 Personal history of other diseases of the digestive system; E89.0 Postprocedural hypothyroidism; Z79.01 Long term (current) use of anticoagulants; Z79.84 Long term (current) use of oral hypoglycemic drugs; Z79.82 Long term (current) use of aspirin; Z79.899 Other long term (current) drug therapy; D70.9 Neutropenia, unspecified; E78.5 Hyperlipidemia, unspecified; E86.0 Dehydration; E11.22 Type 2 diabetes mellitus with diabetic chronic kidney disease; E11.51 Type 2 diabetes mellitus with diabetic peripheral angiopathy without gangrene; Z79.890 Hormone replacement therapy; K59.00 Constipation, unspecified; K44.9 Diaphragmatic hernia without obstruction or gangrene; Z87.891 Personal history of nicotine dependence; D63.8 Anemia in other chronic diseases classified elsewhere; F32.A Depression, unspecified; F41.9 Anxiety disorder, unspecified; I70.229 Atherosclerosis of native arteries of extremities with rest pain, unspecified extremity
CPT/HCPCS: 36415; 71045-TC; 76770-TC; 80048-TC; 80053-TC; 81001; 82550-TC; 82570-TC; 82728-TC; 83605-TC; 83615-TC; 83735-TC; 83880; 83970; 84100-TC; 84155; 84155-TC; 84165; 84300-TC; 84439-TC; 84443-TC; 84484-TC; 85025-TC; 85378-TC; 85652-TC; 85730-TC; 86140-TC; 87040-TC; 87081-TC; 87086-TC; 93307-TC; 97112-TC; 97116-TC; 97530-TC; C9803; G0378; J0456; J0696; J1100; J1644; J2270; J2405; J7040; J7060; Q9967; U0003